=== PATIENT | female | born 1940 | race Caucasian/White ===

== ENCOUNTER → 2017-10-17 | Outpatient (CLI) | payer OTHER ==
[~2017-10-17] MED LIST: ASCO10003 PO; BIOT1CAP8 PO; CALC500C70 PO; LOPE-5 PO; MECL1TAB42 PO; OMEG10007 PO; OXYB5TAB21 PO; SUMA25TA PO; TAMO20TA9 PO; TURM1CAP2 PO
[2017-10-17 14:03] VITALS: BP 130/68; PULSE 79; TEMP 36.6; O2SAT 95
--- NOTE | 2017-10-17 16:24 | Radiation Oncology Follow-Up ---
Radiation Oncology Follow-Up Date of Visit Oct 17, 2017. Reason For Visit Annual follow-up Radiation Completion Date 01/24/16 Diagnosis (1) Breast cancer Status: Resolved Onset Date: 10/14/2015 Location: left breast Histology Subtype: lobular Stage: l (A) Permanent Comment: Abnormal left breast mammogram Status post biopsy 10/14/2015 revealing lobular carcinoma grade 2 Estrogen positive, progesterone receptor positive, HER-2/rose negative Status post lumpectomy and sentinel lymph node biopsy 11/09/2015 pT1b [id number] Oncotype DX 16 Status post completion of radiation therapy 01/24/2016 received 5130 cGy Last Edited By: Luly Chase on Feb 28, 2016 14:47 History of Present Illness Ms. Nettles is without a family history of breast cancer. She underwent her annual screening mammograms most recently on 09/30/2015. This showed a focal density in the medial left breast is not clearly identified on the MLO view. It was recommended a spot view CC projection as well as the true lateral with ultrasound evaluation if possible. Therefore on 10/06/2015 patient underwent a left diagnostic mammogram and targeted breast ultrasound. This showed a small persistent focal asymmetry medial posterior left breast around the 9 o'clock position. On the left mediolateral view the asymmetry projected posteriorly close to the chest wall partially overlapping with the inferior pectoralis muscle. Ultrasound evaluation revealed an ill-defined hypoechoic mass lesion at the 10:00 location of the left breast 9 cm from the nipple that measured 0.41 x 0.35 x 0.35 cm. Adjacent to this lesion was a second ill-defined hypoechoic lesion also located 10 o'clock position 9 cm nipple and measured 0.59 x 0.55 x 0.72 cm. Both of these lesions are felt to be suspicious with biopsy recommended. On 10/14/2015 the patient underwent a core biopsy of the mass of the left breast 10 o'clock position. This was positive for an invasive lobular carcinoma , preliminary modified Vázquez Hidalgo grade 2 with LCIS. ER positive (100%, strong nuclear staining). Progesterone receptor positive (100%, intermediate nuclear intensity staining). HER-2/rose negative. Biopsy was performed at the [facility]. This tissue was reviewed at the [facility]. This confirmed the diagnosis of invasive lobular carcinoma that were ER positive NE positive and HER-2/rose negative. Accession #[id number] Patient chose to be seen by Dr. Gipson for surgical evaluation in [place]. The slides were reviewed by the [facility]. They confirmed infiltrating carcinoma, lobular type, grade 2. ER positive (100%, 3+) . Progesterone positive (90%, 3+), HER-2/rose negative (0) lobular neoplasia ( LIN2, LCIS).. Accession #: [id number]. Dr. Gipson discussed surgical treatment options with this patient. She opted to proceed with breast conserving therapy consisting of lumpectomy and sentinel node biopsy. She also discussed additional staging procedures consisting of a bilateral breast MRIs. These were performed on 11/03/2015. In the left breast to irregular spiculated masses are seen in the upper inner quadrant of the left breast in the far posterior position measuring 6 mm and 7 mm respectively. The masses are less than a centimeter apart and the cumulative dimension is 1.8 cm. No morphologically abnormal lymph nodes are identified in either the right or left axilla. No suspicious abnormalities seen in the right breast. Extramammary showed possible cardiomegaly. On 11/09/2015 patient underwent a partial mastectomy and sentinel node biopsy. A single sentinel node was benign. The lumpectomy specimen revealed an invasive lobular carcinoma measuring 0.8 cm in greatest dimension. The margins were uninvolved by invasive carcinoma. The distance from the closest margin was 0.3 cm and was the anterior margin. No lymphovascular or dermal lymphovascular invasion was identified. The final staging was therefore apT1b pN0(SN-), ER positive, NE positive, HER-2/rose negative. Patient is scheduled to be seen by Dr. Dougherty for evaluation of the role of adjuvant chemotherapy or hormonal therapy. The patient had an Oncotype DX evaluation performed. She received a recurrent score of 16 which translates into a ten-year risk of distant recurrence with tamoxifen alone 10%. This places her at the high end of the low risk category. We were asked to see the patient in referral by Dr. Gipson for evaluation and discussion of the role of adjuvant radiation. It is for this reason the patient is seen in referral. She underwent a CT simulation and was found to be a candidate for hypo- fractionation. Radiation was completed 01/24/2016 she received 5130 cGy. Interim History She's been doing well over this past year. She denies any changes to her breast. She's noticed no masses or tenderness and no change of the axilla. She 's had no swelling of her arm. She is up-to-date on mammography. She's been followed closely by Dr. Dougherty and Dr. Gipson. She has tried 3 different aromatase inhibitors. These all caused dizziness/vertigo. She is now on tamoxifen for approximately 6 months. She is tolerating this well. She has minimal mild hot flashes. She has occasional cramping of the legs at night. She exercises regularly and does routine stretching exercises she does not get the cramps. She had a mammogram 04/15/2017. This was of the left breast findings are probably benign category 3 recheck of 6 months. She had a mammogram today. The written report is pending but the patient was told that this is negative by the radiologist. It was a diagnostic mammogram. Allergies Coded Allergies: No Known Drug Allergy (Verified Allergy, Unknown, None , 11/30/15) Uncoded Allergies: smoke (Allergy, Severe, SHORTNESS OF BREATH, 02/28/16) Home Medications Scheduled Ascorbic Acid (Vitamin C), 1 TAB PO DAILY Biotin (Biotin), 1 CAP PO DAILY Calcium/Vitamin D (Os-Sandro 500 Plus D), 1 TAB PO DAILY Fish Oil ([place]-3), 1 CAP PO DAILY Loperamide Hcl (Imodium A-D), 1 TAB PO PRN Oxybutynin Chloride (Ditropan Xl), 1 TAB PO DAILY Sumatriptan Succinate (Imitrex), 25 MG PO PRN Tamoxifen (Nolvadex), 20 MG PO DAILY Turmeric (Curcuma Longa) (Turmeric), 1 CAP PO DAILY Scheduled PRN Meclizine Hcl (Meclizine Hcl), 1 TAB PO TID PRN for Dizziness or Vertigo Review of Systems Gastrointestinal: Symptoms: WNL Oral: Symptoms: No Problems Respiratory: Symptoms: WNL Urinary: Symptoms: WNL Skin: Symptoms: No Problems Breast: Right Upper Arm Measurement: 27.5 Right Mid Arm Measurement: 22.0 Right Wrist Measurement: 15.0 Left Upper Arm Measurement: 26.5 Left Mid Arm Measurement: 22.5 Left Wrist Measurement: 15.0 Arm Dominence: Right Physical Exam Vital Signs Date Time Temp Pulse Resp B/P (MAP) Pulse Ox O2 Delivery O2 Flow Rate FiO2 10/17/17 14:03 36.6 79 18 130/68 95 General Appearance: no apparent distress Eyes: normal inspection, EOMI ENT: normal ENT inspection, hearing grossly normal Neck: no adenopathy, thyroid normal Respiratory/Chest: lungs clear, no respiratory distress, no accessory muscle use Breast: Breast examination reveals well-healed incisions of the left breast. There are no masses or tenderness no axillary adenopathy. There is no telangiectasia or skin retractions. There are no nipple changes. Using the [place] score cosmesis she has a excellent outcome. The right breast showed no masses or tenderness no axillary adenopathy. Cardiovascular: regular rate, rhythm, no gallop, no murmur Abdomen: non tender, soft, no organomegaly Extremities: no pedal edema Neurologic/Psychiatric: no motor/sensory deficits, alert Skin: warm/dry Pain Management Patient Reports Pain: No Pain Location: None Patient Preferred Pain Scale: 0 - 10 Initial Pain Intensity: 0.0 Pain Management Plan She denied pain therefore requires no pain management. Laboratory Laboratory Results: not applicable Pathology Pathology Results: not applicable Imaging Imaging Studies: were reviewed, and pertinent findings noted in HPI Imaging Comments Reviewed in the interim history. Assessment & Plan Plan: Continue annual mammography. Continue regular follow-up with her primary care physician, Dr. Dougherty, and Dr. Gipson. A follow-up appointment with our office was given for 1 year. We did discuss discontinuation of visits with our office if she has breast examinations every 6 months over the next year. If she is able to set up the appointments every 6 months then she would not have to return to our office. She made then cancel the appointment. She may continue to call our office if she has any questions or concerns. Total Time In Follow-Up I spent 20 minutes speaking to the patient and performing examination. I spent 15 minutes reviewing information in completing this note. Copy To Misa Gipson MD; Ermias Pacheco M.D.; Mary Anne Dougherty MD
== END | disposition home or self-care (01) ==
LOC: C.ONC 13:48
PROVIDERS: ATTEND Physician Assistant Medical
DX: Z08 Encounter for follow-up examination after completed treatment for malignant neoplasm (principal); Z92.3 Personal history of irradiation; Z85.3 Personal history of malignant neoplasm of breast